=== PATIENT | male | born 1945 | race Caucasian/White ===

== ENCOUNTER 2023-05-10 09:25 | Outpatient (CLI) | payer MEDICARE | END 2023-05-10 09:26 | disposition home or self-care (01) | LOC: CSHCT 09:25 | PROVIDERS: ATTEND Family Medicine | DX: Z12.2 Encounter for screening for malignant neoplasm of respiratory organs (principal); F17.210 Nicotine dependence, cigarettes, uncomplicated; R91.8 Other nonspecific abnormal finding of lung field; J43.2 Centrilobular emphysema; I25.10 Atherosclerotic heart disease of native coronary artery without angina pectoris; I25.84 Coronary atherosclerosis due to calcified coronary lesion | CPT/HCPCS: 71271 ==